=== PATIENT | male | born 2000 | race Caucasian/White ===

== ENCOUNTER 2019-04-04 00:42 | Emergency (ER) | payer OTHER ==
--- NOTE | 2019-04-04 01:02 | EDPHY ---
H & P Stated Complaint: R shoulder inj Time Seen by Provider: 04/04/19 00:54 HPI/ROS: Chief Complaint: Right shoulder injury HPI: 18-year-old male was riding on a skateboard when he fell off, falling backwards striking his right shoulder. He felt a pop. He has had pain in his right shoulder since. This occurred approximately 30 min ago. Did not hit his head. No loss of consciousness. Did sustain abrasions on the palm of his hand and his elbow and knee. No prior injuries. ROS: 10 systems were reviewed and were negative except those elements noted in the HPI. PMH: Denies Social History: No smoking, no alcohol, no recreational drug use Family History: non-contributory Physical Exam: Gen: Awake, Alert, No Distress HEENT: Nose: no rhinorrhea Eyes: PERRLA, EOMI Mouth: Moist mucosa Neck: Supple, no JVD Chest: nontender, lungs clear to auscultation Heart: S1, S2 normal, no murmur Abd: Soft, non-tender, no guarding Back: no CVA tenderness, no midline tenderness Ext: Right shoulder deformity consistent with anterior dislocation Skin: no rash Neuro: CN II-XII intact, Sensation grossly intact, Strength 5/5 in bilateral upper and lower extremities - Personal History Current Tetanus/Diphtheria Vaccine: Yes - Medical/Surgical History Hx Asthma: No Hx Chronic Respiratory Disease: No Hx Diabetes: No Hx Cardiac Disease: No Hx Renal Disease: No Hx Cirrhosis: No Hx Alcoholism: No Hx HIV/AIDS: No Hx Splenectomy or Spleen Trauma: No Other PMH: DENIES - Social History Smoking Status: Never smoked Constitutional: Initial Vital Signs Temperature (C) 36.9 C 04/04/19 00:43 Heart Rate 70 04/04/19 00:43 Respiratory Rate 16 04/04/19 00:43 Blood Pressure 119/68 04/04/19 00:43 O2 Sat (%) 97 04/04/19 00:43 O2 Delivery Mode Room Air Allergies/Adverse Reactions: No Known Allergies Allergy (Verified 04/04/19 00:44) Home Medications: Medication Instructions Recorded NK [No Known Home Meds] 04/15/15 Medical Decision Making Procedures: Procedure: Dislocation reduction. The dislocation of the right shoulder was reduced using external rotation technique without complications. Post reduction the patient's neurovascular exam is normal. Post reduction x-ray demonstrates reduction of the joint to the anatomic position. The procedure was performed by myself. Departure - Departure Disposition: Home, Routine, Self-Care Clinical Impression: Shoulder dislocation Condition: Good Instructions: Shoulder Dislocation (ED), How to Use a Sling (ED) Additional Instructions: Wear the sling at all times until you follow up with orthopedist. Follow up with orthopedic surgeon in 3-4 days for further evaluation. Take ibuprofen, 600 mg every 8 hr. You may alternate with acetaminophen, 1000 mg every 8 hr. Referrals: Surekha Hardin MD [Medical Doctor] - As per Instructions
[2019-04-04 01:36] VITALS: BP 114/57
== END 2019-04-04 01:32 | disposition home or self-care (01) ==
PROC: 0RSJXZZ Reposition Right Shoulder Joint, External Approach (ICD-10-PCS; principal; 2019-04-04)
DX: S43.004A Unspecified dislocation of right shoulder joint, initial encounter (principal); V00.131A Fall from skateboard, initial encounter; Y93.51 Activity, roller skating (inline) and skateboarding; Y92.480 Sidewalk as the place of occurrence of the external cause